=== PATIENT | female | born 1985 | race Caucasian/White ===

== ENCOUNTER 2019-11-11 00:48 | Emergency (ER) | payer OTHER ==
[~2019-11-11] VITALS: Ht 165.1 cm; Wt 82.6 kg
[~2019-11-11 00:48] MED LIST: CARB100T PO
--- NOTE | 2019-11-11 00:48 | NUR ---
PT TAKEN TO BED 07 VIA [facility].
[2019-11-11 00:50] VITALS: BP 121/76
--- NOTE | 2019-11-11 00:50 | NUR ---
34 YO F BIBA FOR C/C OF 2 TONIC CLONIC SEIZURES PER REPORT OF EMS. PT EXPERIENCED TWO BACK TO BACK WITNESSED SEIZURES AT HOME BY . PER EMS REPORT WAS A POOR HISTORIAN AND UNABLE TO SAY HOW LONG EACH SEIZURE WAS, BUT STATES SHE USED HER ARM TO CATCH HER FALL. PT EXPERIENCED VOMITING IN ROUTE, PRESENTS WITH VOMIT ON CLOTHING AND A SMALL ABRAISION TO HER LEFT EYE. PT IS A&Ox4. PERRLA PRESENT WITH 3MM SLUGGISH REACTION TO LIGHT. PT STATES SHE HAS A STAHL 4/10 IN FRONTAL AREA OF HEAD. PT STATES SHE HAS "NOT HAD A SEIZURE FOR 9 YEARS." AIRWAY PATENT, S1 S2 HEARD, LUNG SOUNDS CLEAR THROUGHOUT, BOWEL SOUNDS NORMOACTIVE THROUGHOUT. PT STATES SHE IS CURRENTLY ON HER MENSTRAL CYCLE. LBM WAS YESTERDAY SOFT AND FORMED. PT DENIES FEVER, COUGH, SOB, AND TRAVEL. BED LOCKED AND IN LOWEST POSITION. SIDE RAILS X2. SEIZURE PRECAUTIONS IN PLACE. [facility] HX: EPILEPSY RX: TEGRETOL
[2019-11-11] MEDS ORDERED: NACL 0.9% 1,000 ML IV SCH (00:58)
[2019-11-11] MEDS ORDERED: LORazepam 2 MG/ML VIAL IVP ONE (01:05)
[2019-11-11] MEDS ORDERED: KETOROLAC 30 MG/ML VIAL IVP ONE (01:10)
[2019-11-11 01:12] LABS: BASOPHILS % (AUTO) 0.2 % (0.0-2.0); EOSINOPHILS # (AUTO) 0.2 K/uL (0-0.4); EOSINOPHILS % (AUTO) 1.2 % (0.0-4.0); HEMOGLOBIN 13.2 g/dL (12.0-16.0); LYMPHOCYTES # (AUTO) 2.3 K/uL (2.5-16.5); LYMPHOCYTES % (AUTO) 17.8 % (20.5-51.1); MEAN CORPUSCULAR HEMOGLOBIN 32 pg (27-31); MEAN CORPUSCULAR HGB CONC 34 g/dL (33-37); MEAN CORPUSCULAR VOLUME 93.3 fL (80-94); MONOCYTES # (AUTO) 0.9 K/uL (0.8-1.0); MONOCYTES % (AUTO) 6.7 % (1.7-9.3); NEUTROPHILS # (AUTO) 9.8 K/uL (1.8-7.7); NEUTROPHILS % (AUTO) 74.1 % (42.2-75.2); PLATELET COUNT (AUTO) 256 K/uL (140-450); RED BLOOD CELL COUNT(AUTO) 4.18 MIL/uL (4.20-5.40); WHITE BLOOD COUNT (AUTO) 13.2 K/uL (4.8-10.8)
--- NOTE | 2019-11-11 01:19 | NUR ---
PT SITTING ON BED CALLAHAN, UNABLE TO PROVIDE URINE SAMPLE AT THIS TIME. ENCORAGED TO VOID.
[2019-11-11 01:32] LABS: ALBUMIN 3.7 g/dL (3.4-5.0); ANION GAP 15.5 (8-16); POTASSIUM 3.5 mmol/L (3.5-5.1); TOTAL BILIRUBIN 0.1 mg/dL (0.0-1.0)
--- NOTE | 2019-11-11 01:33 | NUR ---
SPOKE TO PTS OVER THE PHONE, GAVE UPDATE AND RECIEVED MORE INFORMATION OF SEIZURE ACTIVITY. FIRST SEIZURE WAS ABOUT 1 MIN AND 10 SECS AND PT WAS SEEN HITTING HER LEFT SIDE OF HEAD ON TABLE. THE PT LAYED DOWN AND TOOK HER MISSED DOSE OF MEDICATION. SECOND SEIZURE WAS 3 MIN AFTER SHE TOOK MED AND LASTED 40 SECONDS. JEFFERSON MADE AWARE. ROMEO PUGHMaribel () [phone]
--- NOTE | 2019-11-11 01:39 | NUR ---
PT STILL UNABLE TO PROVIDE URINE SAMPLE. ERMD MADE AWARE
--- NOTE | 2019-11-11 01:40 | NUR ---
JEFFERSON SAID ITS OK NOT TO GET URINE SAMPLE
[2019-11-11] MEDS ORDERED: carBAMazepine 200 MG TAB PO ONE (02:00)
--- NOTE | 2019-11-11 02:00 | NUR ---
PT SLEEPING IN BED. PT AROUSBALE TO NAME. PT STATES HER STAHL PAIN HAS BEEN REDUCED TO 0/10.
--- NOTE | 2019-11-11 02:10 | NUR ---
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 SAID HE WILL PULL UP TO ER LOBBY DOORS SO I CAN BRING HER TO CAR IN WHEELCHAIR.
[2019-11-11 02:15] VITALS: BP 91/50
== END 2019-11-11 02:15 | disposition home or self-care (01) ==
LOC: MED 00:48
DX: R56.9 Unspecified convulsions (principal); R11.10 Vomiting, unspecified; Z79.899 Other long term (current) drug therapy
CPT/HCPCS: 71045; 80053; 80156; 85025; 87040; 93005; 96361; 96374; 96375; 99285; J1885; J2060; Q0092; J7030